=== PATIENT | female | born 1955 | race Caucasian/White ===

== ENCOUNTER 2024-06-26 19:11 | Emergency (ER) | payer MEDICARE, OTHER, SELFPAY ==
[2024-06-26] VITALS (22 sets, daily range): BP systolic 121–160; BP diastolic 49–80; PULSE 73–89; TEMP 37.3; O2SAT 97–98; BMI 28.3
--- NOTE | 2024-06-26 19:50 | ED_ITS ---
Documented by User: CLINTON Llamas 06/26/24 22:20 HPI HPI - General Adult General Chief complaint: Abdominal Pain Stated complaint: ABDOMINAL PAIN AND PRESSURE Time Seen by Provider: 06/26/24 19:38 Source: patient Mode of arrival: walk-in History of Present Illness HPI narrative: Patient is a 68-year-old female who presents to the emergency department for a 1 week history of abdominal pain and pressure. She has a history of cholecystectomy in the past. No other abdominal surgeries. She states for the last week she has had intermittent bloating and pressure across the upper abdomen. She states today the pain is more severe and seems to be worsening. She has had no fevers, chills, cough or congestion. She states she is having small bowel movements, no diarrhea. She has not had any urinary symptoms, flank or back pain. No medications taken prior to arrival. Related Data Previous Rx's ?Medication ?Instructions ?Recorded dicyclomine 20 mg tablet 20 mg PO TID PRN abdominal pain #7 06/27/24 tabs ondansetron 4 mg disintegrating 4 mg PO Q4H PRN nausea and 06/27/24 tablet vomiting 3 days #6 tabs Allergies Allergy/AdvReac Type Severity Reaction Status Date / Time No Known Drug Allergies Allergy Verified 06/26/24 19:28 Opioid HPI Opioid Management Most Recent Opioid Data: No Data to Display Review of Systems ROS Constitutional Denies: fever or chills Ears, nose, mouth, and throat Denies: throat pain or nasal congestion Cardiovascular Denies: chest pain Respiratory Denies: shortness of breath or cough Gastrointestinal Reports: abdominal pain and nausea; Denies: vomiting or diarrhea Genitourinary Denies: painful urination Musculoskeletal Denies: back pain Integumentary/Breast Denies: rash Neurological Denies: numbness in extremities or weakness in extremities Hematologic/Lymphatic Denies: easy bruising or easy bleeding PFSH PFS Social History Little interest or pleasure in doing things: not at all Feeling down, depressed, or hopeless: not at all Exam Narrative Exam Narrative: Gen.: Awake, alert, in no distress Head: Normocephalic, atraumatic ENT: Moist mucous membranes Respiratory: No respiratory distress, lungs clear bilaterally Cardio: Regular rate and rhythm Gastrointestinal: Abdomen is soft, mildly distended and diffusely tender to palpation across the bilateral upper quadrants of the abdomen and epigastrium. No guarding or rebound. No rigidity. Extremities: Moves extremities equally Psych: Normal mood and affect Neuro: No focal neuro deficit Skin: Warm, dry, intact Constitutional Vital Signs, click to edit/add: Last Vital Signs Temp 99.2 F 06/26/24 19:28 Pulse 79 06/26/24 22:31 Resp 20 06/26/24 22:31 BP 121/49 06/26/24 22:31 Pulse Ox 97 06/26/24 20:01 O2 Del Method Room Air 06/26/24 20:01 Course Vital Signs Vital signs: Vital Signs Temperature 99.2 F 06/26/24 19:28 Pulse Rate 83 06/26/24 19:28 Respiratory Rate 18 06/26/24 19:28 Blood Pressure 160/80 H 06/26/24 19:28 Pulse Oximetry 98 06/26/24 19:28 Oxygen Delivery Method Room Air 06/26/24 19:28 Temperature 99.2 F 06/26/24 19:28 Pulse Rate 79 06/26/24 22:31 Respiratory Rate 20 06/26/24 22:31 Blood Pressure 121/49 06/26/24 22:31 Pulse Oximetry 97 06/26/24 20:01 Oxygen Delivery Method Room Air 06/26/24 20:01 Medical Decision Making MDM Narrative Medical decision making narrative: 2219: Patient was treated with IV fluids, Levsin, Zofran. EKG shows she has frequent PVCs but she has no complaints of chest pain or shortness of breath. Laboratory studies reviewed and noted within normal limits. CT scan is pending at this time and case is turned over to attending physician. She is hemodynamically stable with abdomen soft and benign at this time. SHARED APC VISIT, PHYSICIAN ATTESTATION: [id number] I performed a substantive part of the MDM during the patient?s E/M visit. I personally evaluated and examined the patient. I personally made or approved the documented management plan and acknowledge its risk of complications. Medical Records Medical records reviewed: Yes I reviewed the patient's medical records Lab Data Lab results reviewed: Yes I reviewed the patient's lab results Labs: Lab Results 06/26/24 06/26/24 Range/Units 19:46 19:50 WBC 11.1 H (4.0-11.0) 10^3/uL RBC 4.54 (4.20-5.40) 10^6/uL Hgb 13.3 (12.0-16.0) g/dL Hct 40.4 (36.0-48.0) % MCV 89.0 (81.0-99.0) fL MCH 29.3 (26.7-34.0) pg MCHC 32.9 (29.9-35.2) g/dL RDW 13.9 (11.0-15.0) % Plt Count 255 (150-450) 10^3/uL MPV 11.2 (9.5-13.5) fL Neut % (Auto) 72.8 (43.0-75.0) % Lymph % (Auto) 16.7 L (20.5-60.0) % [place] % (Auto) 8.3 (1.7-12.0) % Eos % (Auto) 1.3 (0.9-7.0) % Baso % (Auto) 0.6 (0.2-2.0) % Neut # (Auto) 8.1 H (1.4-6.5) 10^3/uL Lymph # (Auto) 1.9 (1.2-3.8) 10^3/uL [place] # (Auto) 0.9 H (0.3-0.8) 10^3/uL Eos # (Auto) 0.1 (0.0-0.7) 10^3/uL Baso # (Auto) 0.1 (0.0-0.1) 10^3/uL Abs Immat Gran (auto) 0.03 (0.00-0.03) 10^3/uL Imm/Tot Granulo (auto) 0.3 (0.0-0.5) % PT 11.0 (9.0-11.6) sec INR 1.04 Sodium 138 (136-145) mmol/L Potassium 3.8 (3.5-5.1) mmol/L Chloride 100 (98-107) mmol/L Carbon Dioxide 25.9 (21.0-32.0) mmol/L Anion Gap 15.9 BUN 17.0 (7.0-18.0) mg/dL Creatinine 0.76 (0.55-1.02) mg/dL Est GFR ( Amer) >60 (>=60 mL/min/1.73m^2) Est GFR (Non-Af Amer) >60 (>=60 mL/min/1.73m^2) BUN/Creatinine Ratio 22.4 Glucose 118 H (74-106) mg/dL Lactate 1.1 (0.4-2.0) mmol/L Calcium 9.6 (8.5-10.1) mg/dL Total Bilirubin 0.5 (0.2-1.0) mg/dL AST 18 (15-37) U/L ALT 26 (14-59) U/L Alkaline Phosphatase 94 (46-116) U/L Troponin I High Sens 10.3 (4.0-51.3) pg/mL Total Protein 7.7 (6.4-8.2) g/dL Albumin 3.9 (3.4-5.0) g/dL Globulin 3.8 g/dL Albumin/Globulin Ratio 1.0 Lipase 26.0 (16.0-77.0) U/L Urine Color Yellow (YELLOW) Urine Clarity Clear (CLEAR) Urine pH 5.5 (5.0-9.0) Ur Specific [place] >=1.030 A (1.005-1.025) Urine Protein Negative (NEG/TRACE) mg/dL Urine Glucose (UA) Negative (NEGATIVE) mg/dL Urine Ketones Trace A (NEGATIVE) mg/dL Urine Occult Blood Large A (NEGATIVE) Urine Nitrite Negative (NEGATIVE) Urine Bilirubin Small A (NEGATIVE) Urine Urobilinogen 0.2 (0.2-1.0) EU/dL Ur Leukocyte Esterase Small A (NEGATIVE) Urine RBC 0-2 (0-2) #/HPF Urine WBC 5-10 A (NONE SEEN) #/HPF Ur Squamous Epith Cells Rare (NONE/RARE) #/LPF Ur Transition Epith Cell Rare A (NONE SEEN) #/LPF Urine Crystals None seen (None Seen) #/HPF Urine Bacteria Trace A (NONE SEEN) #/HPF Urine Casts None seen (NONE SEEN) #/LPF Urine Mucus Trace A (NONE SEEN) Ur Culture Indicated? [place] [place] - abdomen: Attestation: I have reviewed the pertinent imaging results. ECG Data Attestation: I personally reviewed and interpreted this ECG as follows: (Normal sinus rhythm at a rate of 84, frequent PVCs with no acute ST elevation. EKG reviewed by attending physician) Discharge Plan Discharge Chief Complaint: Abdominal Pain Clinical Impression: Abdominal pain, Frequent PVCs Patient Disposition: Home, Self-Care Time of Disposition Decision: 00:42 Condition: Fair Prescriptions / Home Meds: New dicyclomine 20 mg tablet 20 mg PO TID PRN (Reason: abdominal pain) Qty: 7 0RF ondansetron 4 mg tablet,disintegrating 4 mg PO Q4H PRN (Reason: nausea and vomiting) 3 Days Qty: 6 0RF Print Language: [place]an Instructions: Abdominal Pain (ED), Premature Ventricular Contractions (ED) Additional Instructions: A copy of your CT report has been given to you. We had discussed possible scarring versus fibrosis surrounding the infrarenal abdominal acute arctic segments. Nonspecific findings. We have also discussed PVCs, follow-up with PCP and be referred to elephant keeper if needed. We have discussed cyst noted to the posterior left pelvis as well. Follow-up with PCP or INFORMATION SYSTEMS SUPERVISOR for further testing if needed. Apologies for delays and CAT scan read tonight. Return back to the ER if intractable pain, nausea, vomiting, or any other acute concerns. Zofran and Bentyl been sent home to use if needed for nausea and abdominal pain. Referrals: Physician,Non-Staff, [Primary Care Provider] - 1 week Documented by User: Ben Markham MD 06/27/24 00:46 HPI HPI - General Adult General Chief complaint: Abdominal Pain Stated complaint: ABDOMINAL PAIN AND PRESSURE Time Seen by Provider: 06/26/24 19:38 Related Data Previous Rx's ?Medication ?Instructions ?Recorded dicyclomine 20 mg tablet 20 mg PO TID PRN abdominal pain #7 06/27/24 tabs ondansetron 4 mg disintegrating 4 mg PO Q4H PRN nausea and 06/27/24 tablet vomiting 3 days #6 tabs Allergies Allergy/AdvReac Type Severity Reaction Status Date / Time No Known Drug Allergies Allergy Verified 06/26/24 19:28 Opioid HPI Opioid Management Most Recent Opioid Data: No Data to Display PFSH PFSH Social History Little interest or pleasure in doing things: not at all Feeling down, depressed, or hopeless: not at all Exam Constitutional Vital Signs, click to edit/add: Last Vital Signs Temp 99.2 F 06/26/24 19:28 Pulse 79 06/26/24 22:31 Resp 20 06/26/24 22:31 BP 121/49 06/26/24 22:31 Pulse Ox 97 06/26/24 20:01 O2 Del Method Room Air 06/26/24 20:01 Course Vital Signs Vital signs: Vital Signs Temperature 99.2 F 06/26/24 19:28 Pulse Rate 83 06/26/24 19:28 Respiratory Rate 18 06/26/24 19:28 Blood Pressure 160/80 H 06/26/24 19:28 Pulse Oximetry 98 06/26/24 19:28 Oxygen Delivery Method Room Air 06/26/24 19:28 Temperature 99.2 F 06/26/24 19:28 Pulse Rate 79 06/26/24 22:31 Respiratory Rate 20 06/26/24 22:31 Blood Pressure 121/49 06/26/24 22:31 Pulse Oximetry 97 06/26/24 20:01 Oxygen Delivery Method Room Air 06/26/24 20:01 Medical Decision Making MDM Narrative Medical decision making narrative: 2219: Patient was treated with IV fluids, Levsin, Zofran. EKG shows she has frequent PVCs but she has no complaints of chest pain or shortness of breath. Laboratory studies reviewed and noted within normal limits. CT scan is pending at this time and case is turned over to attending physician. She is hemodynamically stable with abdomen soft and benign at this time. SHARED APC VISIT, PHYSICIAN ATTESTATION: [id number] I performed a substantive part of the MDM during the patient?s E/M visit. I personally evaluated and examined the patient. I personally made or approved the documented management plan and acknowledge its risk of complications. 2912 I have called [facility] radiology, I have spoken to their structural metal fabricator apprentice. They are several hours behind on CT reads this evening. They have called a couple of the radiologist to help read CAT scans because they are behind with all other hospitals, 1 radiologist did show up. Patient's name and birthday were taken down, radiologist will be informed of concern for delayed reason patient by myself. 0040 I have spoken to Mady from radiology, architectural technologist. She has noted that the images appear to be in progress from their screens. Patient has been updated. Patient's head CT images done approximately 4 hours. Multiple blame less apologies been given from myself and nursing staff, patient has been updated right now on the in progress information has been given as well. 0045 CT report shows no specific findings. Patient has noted scarring versus fibrosis surrounding the infrarenal abdominal aortic segment in the retrope ritoneum. Patient also has 3 x 6 cm cyst in the posterior left pelvis. Education and PVCs were discussed at bedside and on discharge paperwork as well. Patient will follow-up with PCP. Patient was sent home with Zofran and Bentyl to use if needed. Patient had a 4-hour delay in getting CT of the abdomen pelvis readings. Plan was apologies were given to the patient several times from myself and nursing staff. Patient abdomen is soft, minimal midepigastric tenderness palpation at discharge. No peritoneal signs, no guarding rebound rigidity, no acute surgical abdomen at discharge. I, Dr Markham, have reviewed the above progress note and course of action in the ER; agree with the above. I have personally seen and evaluated this patient, gone over history and physical, and discussed disposition and treatment plan with the patient. Lab Data Labs: Lab Results 06/26/24 06/26/24 Range/Units 19:46 19:50 WBC 11.1 H (4.0-11.0) 10^3/uL RBC 4.54 (4.20-5.40) 10^6/uL Hgb 13.3 (12.0-16.0) g/dL Hct 40.4 (36.0-48.0) % MCV 89.0 (81.0-99.0) fL MCH 29.3 (26.7-34.0) pg MCHC 32.9 (29.9-35.2) g/dL RDW 13.9 (11.0-15.0) % Plt Count 255 (150-450) 10^3/uL MPV 11.2 (9.5-13.5) fL Neut % (Auto) 72.8 (43.0-75.0) % Lymph % (Auto) 16.7 L (20.5-60.0) % [place] % (Auto) 8.3 (1.7-12.0) % Eos % (Auto) 1.3 (0.9-7.0) % Baso % (Auto) 0.6 (0.2-2.0) % Neut # (Auto) 8.1 H (1.4-6.5) 10^3/uL Lymph # (Auto) 1.9 (1.2-3.8) 10^3/uL [place] # (Auto) 0.9 H (0.3-0.8) 10^3/uL Eos # (Auto) 0.1 (0.0-0.7) 10^3/uL Baso # (Auto) 0.1 (0.0-0.1) 10^3/uL Abs Immat Gran (auto) 0.03 (0.00-0.03) 10^3/uL Imm/Tot Granulo (auto) 0.3 (0.0-0.5) % PT 11.0 (9.0-11.6) sec INR 1.04 Sodium 138 (136-145) mmol/L Potassium 3.8 (3.5-5.1) mmol/L Chloride 100 (98-107) mmol/L Carbon Dioxide 25.9 (21.0-32.0) mmol/L Anion Gap 15.9 BUN 17.0 (7.0-18.0) mg/dL Creatinine 0.76 (0.55-1.02) mg/dL Est GFR ( Amer) >60 (>=60 mL/min/1.73m^2) Est GFR (Non-Af Amer) >60 (>=60 mL/min/1.73m^2) BUN/Creatinine Ratio 22.4 Glucose 118 H (74-106) mg/dL Lactate 1.1 (0.4-2.0) mmol/L Calcium 9.6 (8.5-10.1) mg/dL Total Bilirubin 0.5 (0.2-1.0) mg/dL AST 18 (15-37) U/L ALT 26 (14-59) U/L Alkaline Phosphatase 94 (46-116) U/L Troponin I High Sens 10.3 (4.0-51.3) pg/mL Total Protein 7.7 (6.4-8.2) g/dL Albumin 3.9 (3.4-5.0) g/dL Globulin 3.8 g/dL Albumin/Globulin Ratio 1.0 Lipase 26.0 (16.0-77.0) U/L Urine Color Yellow (YELLOW) Urine Clarity Clear (CLEAR) Urine pH 5.5 (5.0-9.0) Ur Specific [place] >=1.030 A (1.005-1.025) Urine Protein Negative (NEG/TRACE) mg/dL Urine Glucose (UA) Negative (NEGATIVE) mg/dL Urine Ketones Trace A (NEGATIVE) mg/dL Urine Occult Blood Large A (NEGATIVE) Urine Nitrite Negative (NEGATIVE) Urine Bilirubin Small A (NEGATIVE) Urine Urobilinogen 0.2 (0.2-1.0) EU/dL Ur Leukocyte Esterase Small A (NEGATIVE) Urine RBC 0-2 (0-2) #/HPF Urine WBC 5-10 A (NONE SEEN) #/HPF Ur Squamous Epith Cells Rare (NONE/RARE) #/LPF Ur Transition Epith Cell Rare A (NONE SEEN) #/LPF Urine Crystals None seen (None Seen) #/HPF Urine Bacteria Trace A (NONE SEEN) #/HPF Urine Casts None seen (NONE SEEN) #/LPF Urine Mucus Trace A (NONE SEEN) Ur Culture [place] [place] Discharge Chief Complaint: Abdominal Pain Clinical Impression: Abdominal pain, Frequent PVCs Patient Disposition: Home, Self-Care Time of Disposition Decision: 00:42 Condition: Fair Prescriptions / Home Meds: New dicyclomine 20 mg tablet 20 mg PO TID PRN (Reason: abdominal pain) Qty: 7 0RF ondansetron 4 mg tablet,disintegrating 4 mg PO Q4H PRN (Reason: nausea and vomiting) 3 Days Qty: 6 0RF Print Language: [place] Instructions: Abdominal Pain (ED), Premature Ventricular Contractions (ED) Additional Instructions: A copy of your CT report has been given to you. We had discussed possible scarring versus fibrosis surrounding the infrarenal abdominal acute arctic segments. Nonspecific findings. We have also discussed PVCs, follow-up with PCP and be referred to elephant keeper if needed. We have discussed cyst noted to the posterior left pelvis as well. Follow-up with PCP or INFORMATION SYSTEMS SUPERVISOR for further testing if needed. Apologies for delays and CAT scan read tonight. Return back to the ER if intractable pain, nausea, vomiting, or any other acute concerns. Zofran and Bentyl been sent home to use if needed for nausea and abdominal pain. Referrals: Physician,Non-Staff, MD [Primary Care Provider] - 1 week
--- NOTE | 2024-06-26 19:54 | ECG_ITS ---
[facility] Test Date: 2024-06-26 Pat Name: JUSTIN DUNCAN Department: Room: - Gender: Female Interlacer: : 1955 Requested By: [id number] Order Number: [id number] Reading MD: ÁNGEL URENA M.D. Measurements Intervals [place] Rate: 84 P: 75 SC: 142 QRS: 80 QRSD: 102 T: 8 QT: 392 QTc: 433 Interpretive Statements 1100 Sinus rhythm 1574 with frequent ventricular premature complexes [address] & [place] abnormality 9150 abnormal ECG Compared to ECG 04/29/2017 20:10:11 Poor R-wave progression no longer present Electronically Signed On 06-26-2024 20:27:51 EDT by ÁNGEL URENA M.D.
[2024-06-26 19:59] LABS: Basophils Absolute Auto 0.1 10^3/uL (0.0-0.1); Basophils Percent Auto 0.6 % (0.2-2.0); Eosinophils Absolute Auto 0.1 10^3/uL (0.0-0.7); Eosinophils Percent Auto 1.3 % (0.9-7.0); Hematocrit 40.4 % (36.0-48.0); Hemoglobin 13.3 g/dL (12.0-16.0); Immature Granulocytes Abs Auto 0.03 10^3/uL (0.00-0.03); Immature Granulocytes Pct Auto 0.3 % (0.0-0.5); Lymphocytes Absolute Auto 1.9 10^3/uL (1.2-3.8); Lymphocytes Percent Auto 16.7 % (20.5-60.0); Mean Corpuscular HGB Conc 32.9 g/dL (29.9-35.2); Mean Corpuscular Hemoglobin 29.3 pg (26.7-34.0); Mean Platelet Volume 11.2 fL (9.5-13.5); Monocytes Absolute Auto 0.9 10^3/uL (0.3-0.8); Monocytes Percent Auto 8.3 % (1.7-12.0); Neutrophils Absolute Auto 8.1 10^3/uL (1.4-6.5); Neutrophils Percent Auto 72.8 % (43.0-75.0); Platelet Count 255 10^3/uL (150-450); Red Blood Count 4.54 10^6/uL (4.20-5.40); Red Cell Distribution Width 13.9 % (11.0-15.0); White Blood Count 11.1 10^3/uL (4.0-11.0)
[2024-06-26 20:00] LABS: Bilirubin Urine SMALL (NEGATIVE); Blood Urine LARGE (NEGATIVE); Clarity Urine CLEAR (CLEAR); Color Urine YELLOW (YELLOW); Glucose Urine UA NEGATIVE (NEGATIVE); Ketones Urine TRACE mg/dL (NEGATIVE); Leukocyte Esterase Urine SMALL (NEGATIVE); Nitrite Urine NEGATIVE (NEGATIVE); Protein Urine NEGATIVE (NEG/TRACE); Specific Gravity Urine >=1.030 (1.005-1.025); Urobilinogen Urine 0.2 EU/dL (0.2-1.0); pH Urine 5.5 (5.0-9.0)
[2024-06-26] MEDS: 0.9 % SODIUM CHLORIDE 1,000 ML 999 ML IV (20:05)
[2024-06-26] MEDS: HYOSCYAMINE SULFATE 0.125 MG TAB.SUBL SL (20:05)
[2024-06-26] MEDS: ONDANSETRON PF 4 MG/2 ML VIAL IV (20:05)
[2024-06-26 20:07] LABS: Bacteria Urine TRACE #/HPF (NONE SEEN); Cast Seen? NONE SEEN #/LPF (NONE SEEN); Crystals Seen? None Seen #/HPF (None Seen); Mucus Urine TRACE (NONE SEEN); RBC Urine 0-2 #/HPF (0-2); Squamous Epithelial Cell Urine RARE #/LPF (NONE/RARE); Transitional Epi Cells Urine RARE #/LPF (NONE SEEN)
[2024-06-26 20:08] LABS: Urine Culture Indicated YES-FRMC
[2024-06-26 20:15] LABS: Alanine Aminotransferase 26 U/L (14-59); Albumin Level 3.9 g/dL (3.4-5.0); Alkaline Phosphatase 94 U/L (46-116); Anion Gap 15.9; Aspartate Amino Transferase 18 U/L (15-37); BUN Creatinine Ratio 22.4; Bilirubin Total 0.5 mg/dL (0.2-1.0); Calcium 9.6 mg/dL (8.5-10.1); Carbon Dioxide 25.9 mmol/L (21.0-32.0); Chloride 100 mmol/L (98-107); Estimated GFR (African America >60 (>=60 mL/min/1.73m^2); Estimated GFR (Non-African Ame >60 (>=60 mL/min/1.73m^2); Globulin 3.8 g/dL; Glucose 118 mg/dL (74-106); Potassium 3.8 mmol/L (3.5-5.1); Sodium 138 mmol/L (136-145); Total Protein 7.7 g/dL (6.4-8.2)
[2024-06-26 20:16] LABS: INR 1.04; Troponin I High Sensitivity 10.3 pg/mL (4.0-51.3)
[2024-06-26 20:17] LABS: Lactate/Lactic Acid 1.1 mmol/L (0.4-2.0)
[2024-06-27 01:00] VITALS: BP 124/74; PULSE 88; O2SAT 99
== END 2024-06-27 01:06 | disposition home or self-care (01) ==
PROVIDERS: Physician Assistant; Emergency Provider Emergency Medicine
DX: R10.9 Unspecified abdominal pain (principal); I49.3 Ventricular premature depolarization; Z90.49 Acquired absence of other specified parts of digestive tract
CPT/HCPCS: 36415; 74177; 80053; 81001; 83605; 83690; 84484; 85025; 85610; 87086; 93005; 96374; 99285; J2405; Q9967